=== PATIENT | female | born 1970 | race Caucasian/White ===

== ENCOUNTER → 2017-01-01 | Outpatient (CLI) | payer BC ==
--- NOTE | 2017-01-01 10:49 | MM ---
Reason for exam: clinical finding. Last mammogram was performed 11 months ago. History: Family history of breast cancer in maternal aunt and breast cancer in paternal aunt. Took hormonal contraceptives for 2 years. Indicated problem(s): palpable abnormality and lump or thickening in the right breast. Physical Findings: Nurse Summary: A 2cm nodule in the right breast at 10 o'clock (nurse rm). MG 3D Diag Mammo W/Cad JANET Bilateral CC and MLO view(s) were taken. Prior study comparison: January 31, 2016, bilateral MG diagnostic mammo w CAD JANET. January 22, 2015, bilateral MG diagnostic mammo w CAD JANET. The breast tissue is extremely dense which could obscure a lesion on mammography. There is no discrete abnormality. No significant new findings when compared with previous films. These results were verbally communicated with the patient and result sheet given to the patient on 01/01/17. ASSESSMENT: Negative, BI-RAD 1 RECOMMENDATION: Routine screening mammogram of both breasts in 1 year.
--- NOTE | 2017-01-04 07:19 | USB ---
Reason for exam: clinical finding. History: Family history of breast cancer in maternal aunt and breast cancer in paternal aunt. Took hormonal contraceptives for 2 years. Indicated problem(s): lump or thickening in the right breast. US Breast RT Right breast ultrasound includes all four quadrants, the retroareolar region and axilla. Finding demonstrate a 0.7 x 0.7 x 0.5cm oval, hypoechoic lesion at 9 o'clock for which a biopsy is recommended, a 0.6 x 1.0 x 0.3cm oval node at 9 o'clock and dense tissue at 10-11 o'clock. These results were verbally communicated with the patient and result sheet given to the patient on 01/01/17. ASSESSMENT: Suspicious, BI-RAD 4 RECOMMENDATION: Ultrasound core biopsy of the right breast. Called Dr. Martell with mammographic findings. Biopsy scheduled for 01/08/17 at 9 o'clock. PRELIMINARY REPORT CALLED AND FAXED TO DR. MARTELL ON 01/04/17 AT 300/TMP.
== END | disposition home or self-care (01) ==
LOC: RADMAMWWP 07:36
PROVIDERS: ATTEND Family Medicine
DX: N63 Unspecified lump in breast (principal)
CPT/HCPCS: 76641; G0204; G0279

== ENCOUNTER → 2017-01-07 | Outpatient (CLI) | payer OTHER ==
--- NOTE | 2017-01-07 10:23 | US ---
EXAMINATION TYPE: US pelvic complete DATE OF EXAM: 01/07/2017 COMPARISON: NONE CLINICAL HISTORY: N93.9 Abnormal Uterine and Vaginal Bleeding, Unspe. Abnormal bleeding. TECHNIQUE: Transabdominal (TA) Date of LMP: 12/22/2016 EXAM MEASUREMENTS: Uterus: 10.1 x 4.4 x 5.9 cm Endometrial Stripe: 0.75 cm Right Ovary: 1.6 x 1.2 x 1.7 cm Left Ovary: 2.0 x 1.7 x 2.6 cm 1. Uterus: Anteverted 2. Endometrium: wnl 3. Right Ovary: wnl 4. Left Ovary: wnl. 5. Bilateral Adnexa: wnl 6. Posterior cul-de-sac: wnl IMPRESSION: 1. Endometrial stripe measures approximately 7 to 8 mm correlate with phase of menstrual cycle.
== END | disposition home or self-care (01) ==
LOC: RADUSWWP 09:48
PROVIDERS: ATTEND Family Medicine
DX: N93.9 Abnormal uterine and vaginal bleeding, unspecified (principal)
CPT/HCPCS: 76856

== ENCOUNTER → 2017-01-08 | Day surgery (SDC) | payer BC ==
[2017-01-08 10:41] VITALS: RESP 16; BMI 26.6
[2017-01-08 12:31] VITALS: BP 120/80; PULSE 60; TEMP 98.1
--- NOTE | 2017-01-08 12:59 | USB ---
EXAMINATION TYPE: US biopsy breast VAD RT DATE OF EXAM: 01/08/2017 CLINICAL HISTORY: R92.8 ABN MAMMO. TECHNIQUE: Ultrasound guided core biopsy of right breast. COMPARISON: 01/01/2017 FINDINGS: The procedure of ultrasound guided core biopsy was explained to the patient. Benefits, alternatives, and risks were discussed. An informed consent was obtained. Timeout was performed. The patient was placed in supine positioning for imaging and for the procedure. The overlying skin was prepped and draped in usual sterile fashion. Lidocaine buffered with bicarbonate was used as anesthetic into the skin and subcutaneous tissue up to area of concern in the right breast. A salud was made with surgical scalpel. Under ultrasound guidance, a 12-gauge vacuum assisted biopsy gun device was used to obtain 3 core samples. This appeared to collapse after the first sample suggesting underlying cyst. Following biopsy, a biopsy clip was left in lesion. The patient tolerated the procedure well without any immediate complication. The patient was kept in the radiology department for short stay after the procedure and then discharged home in stable condition. Postprocedure mammogram was obtained. IMPRESSION: 1. Successful ultrasound-guided vacuum-assisted core biopsy. Recommendations: 1. Recommendations are pending pathology results. Pathology Results: Benign BREAST, RIGHT, ULTRASOUND GUIDED CORE BIOPSY: BENIGN BREAST WITH PROMINENT ADIPOSE TISSUE AND FOCAL FIBROCYSTIC CHANGE (FIBROSIS, CYST FORMATION, AND APOCRINE METAPLASIA). Recommendation Follow up mammogram of the right breast in 6 months. STEPHANIE
--- NOTE | 2017-01-08 13:35 | MM ---
Reason for exam: additional evaluation requested from abnormal screening. Last mammogram was performed less than 1 month ago. History: Family history of breast cancer in maternal aunt and breast cancer in paternal aunt. Took hormonal contraceptives for 2 years. MG Diagnostic Mammo RT Wo CAD CC and MLO view(s) were taken of the right breast. Prior study comparison: January 01, 2017, bilateral MG 3d diag mammo w/cad JANET. January 31, 2016, bilateral MG diagnostic mammo w CAD JANET. ASSESSMENT: Post procedure mammogram for marker placement RECOMMENDATION: Ultrasound of the right breast in 6 months. PENDING PATHOLOGY RESULTS.
== END ==
LOC: RADUSWWP 10:16
PROVIDERS: ATTEND Surgery
DX: N60.31 Fibrosclerosis of right breast (principal); N60.81 Other benign mammary dysplasias of right breast; N60.01 Solitary cyst of right breast; Z91.041 Radiographic dye allergy status; R92.8 Other abnormal and inconclusive findings on diagnostic imaging of breast; Z91.09 Other allergy status, other than to drugs and biological substances
CPT/HCPCS: 88305; 19083; G0206; A4648; J2001

== ENCOUNTER → 2017-03-15 | Outpatient (CLI) | payer BC, OTHER ==
[2017-03-15 14:49] LABS: Basophils # (A) 0.1 k/uL (0-0.2); Basophils % (A) 1 %; CHCM 33.4; Eosinophils # (A) 0.1 k/uL (0-0.7); Eosinophils % (A) 2 %; HCT 39.7 % (34.0-46.0); HDW 2.48; HGB 12.8 gm/dL (11.4-16.0); Luc % (Auto) 1; Lymphocytes # (A) 1.7 k/uL (1.0-4.8); Lymphocytes % (A) 22 %; MCH 29.2 pg (25.0-35.0); MCHC 32.3 g/dL (31.0-37.0); MCV 90.2 fL (80.0-100.0); Mean Platelet Volume 7.5; Monocytes # (A) 0.4 k/uL (0-1.0); Monocytes % (A) 5 %; Neutrophils # (A) 5.6 k/uL (1.3-7.7); Neutrophils % (A) 70 %; RBC 4.41 m/uL (3.80-5.40); RDW 14.1 % (11.5-15.5); WBC (Perox) 8.13
== END | disposition home or self-care (01) ==
LOC: LABPAT 14:10
PROVIDERS: ATTEND Obstetrics & Gynecology
DX: Z01.812 Encounter for preprocedural laboratory examination (principal); N93.8 Other specified abnormal uterine and vaginal bleeding
CPT/HCPCS: 85025

== ENCOUNTER 2017-03-23 08:45 | Day surgery (SDC) | payer BC, OTHER ==
--- NOTE | 2017-03-22 22:03 | HP ---
HISTORY OF PRESENT ILLNESS: Isabella is a 46 year old, 3, para 2, 0, 1, 1 who presented to the office on referral from Dr. Martell for dysfunctional uterine bleeding. She complains of approximately 2 to 3 years of significant cycle irregularity. She does have what she considers to be a relatively normal cycle on a monthly basis but has significant episodes of spotting throughout the remainder of the cycle as well as some post coital bleeding. She denies significant dysmenorrhea and has no significant symptoms of menopause at this time. She has had her tubes tied and her partner has a vasectomy. She therefore is not interested in hormonal manipulation to manage the problem and has requested more definitive treatment with endometrial ablation. PAST MEDICAL HISTORY: None. SURGICAL HISTORY: Significant for hernia repair in the past with no anesthetic complications. OBSTETRICAL HISTORY: 3, para 2, 0, 1, 1 with two term vaginal deliveries, one of which was a still . She did have one early elective interruption of . Method of contraception is both tubal ligation and vasectomy. Gynecological history: unremarkable with no history of any infections to include STDs. Family history is noncontributory. Social history: The patient is and works outside the home at [employer]. She is a nonsmoker though she did smoke in the past. She reports occasional alcohol, and denies any other social concerns. Current medications: 1. Adderall 10 mg daily. 2. Celexa 20 mg daily. 3. B12 daily. 4. Iron sulfate daily. ALLERGIES: No known drug allergies. Review of systems is confined to history of present illness. PHYSICAL EXAMINATION: Vital signs are stable and the patient is afebrile. In general, this is a well developed, well nourished white female in no acute distress. HEENT: demonstrates PERRLA, EOMI, her oropharynx is clear. Neck is supple without adenopathy. Thyroid is normal to palpation. Her heart has regular rhythm and rate without murmur. Her lungs are clear to auscultation bilaterally in all pierson. Her abdomen is nondistended and has normal active bowel sounds, is soft, nontender, without any palpable masses, hepatosplenomegaly without any hernias. Her extremities without cyanosis, clubbing or edema and are nontender to palpation bilaterally. Bimanual pelvic examination demonstrates normal external genitalia and BUS with normal vaginal mucosa and cervix. The uterus is approximately five to six weeks in size, mid plane, mobile, nontender and normal shaped uterus. It sounded to approximately 8 to 9 cm in depth on endometrial biopsy which was benign. The adnexa are normal and nontender and without mass bilaterally. ASSESSMENT AND PLAN: Dysfunctional uterine bleeding : We discussed different options for treatment and the patient is interested in proceeding with diagnostic hysterectomy with NovaSure endometrial ablation. Endometrial biopsy was done and benign. The risks and complications of procedure were thoroughly discussed including the risk of bleeding, bleeding requiring transfusion, infection, and injury to local structures to specifically include the uterine perforation, Asherman syndrome and subsequent hematometra. She understood all of these concerns and agrees to proceed. We are scheduled for diagnostic hysteroscopy with NovaSure endometrial ablation on the morning of March 23, 2017. STEPHANIE
[~2017-03-23 08:45] MED LIST: DEXAMETHASONE SOD PHOSPHATE 10 MG/ML 1 ML VIAL IV ONE; HYDROmorphone 1 MG/ML 1 ML SYRINGE IVP PRN; LACTATED RINGERS 1,000 ML IV SCH; LIDOCAINE 1% 20 ML VIAL (10MG/ML) FOR IV START INTRADERMA PRN; ONDANSETRON 4 MG/2 ML VIAL IVP ONE; Pre Op ABX Message 1 EACH MISC MISCELLANE ONE; SCOPOLAMINE 1.5MG/72HR PATCH TRANSDERM ONE
[2017-03-23 09:27] VITALS: TEMP 97.8
[2017-03-23] MEDS ORDERED: KETOROLAC 30 MG/ML 1 ML VIAL ONE (10:57)
[2017-03-23] MEDS ORDERED: PROPOFOL 10 MG/ML 20 ML VIAL IV ONE (10:57)
[2017-03-23] MEDS ORDERED: fentaNYL (PF) 50 MCG/ML 2 ML AMP ONE (10:57)
[2017-03-23] MEDS ORDERED: LIDOCAINE 1% INJ 10MG/ML (20 ML MDV) ONE (10:57)
[2017-03-23] MEDS ORDERED: MIDAZOLAM 2 MG/2 ML VIAL ONE (10:57)
[2017-03-23] MEDS ORDERED: KETOROLAC 30 MG/ML 1 ML VIAL IVP PRN (11:00)
[2017-03-23] MEDS ORDERED: ONDANSETRON 4 MG/2 ML VIAL IVP PRN (11:00)
[2017-03-23] MEDS ORDERED: IBUPROFEN 600 MG TAB PO PRN (11:00)
[2017-03-23] MEDS ORDERED: SIMETHICONE 80 MG CHEWABLE PO PRN (11:00)
[2017-03-23] MEDS ORDERED: diphenhydrAMINE 50 MG/ML 1 ML VIAL IVP PRN (11:00)
[2017-03-23] MEDS ORDERED: LACTATED RINGERS 1,000 ML IV SCH (11:00)
[2017-03-23] MEDS ORDERED: Acetaminophen-Codeine 300-30mg TAB PO PRN ×2 (11:00)
[2017-03-23] MEDS ORDERED: METOCLOPRAMIDE 5 MG/ML 2 ML VIAL IVP PRN (11:00)
--- NOTE | 2017-03-23 11:32 | P.OP ---
Date of Procedure: 03/23/17 Preoperative Diagnosis: #1. Dysfunctional uterine bleeding Postoperative Diagnosis: Same Procedure(s) Performed: #1. Diagnostic hysteroscopy #2. NovaSure endometrial ablation Implants: Anesthesia: other (Gen. by LMA) Surgeon: Rick Burton Estimated Blood Loss (ml): 5 IV fluids (ml): 400 Urine output (ml): 150 Pathology: none sent Condition: stable Disposition: PACU Indications for Procedure: Operative Findings: Preoperative pelvic examination demonstrated a 5 week roughly midplane mobile normal shaped uterus with normal adnexa bilaterally. Intraoperatively, the uterus sounded to 9 cm while the cervix is approximately 3 and half centimeters. The hysteroscope demonstrated some shaggy tissue at the fundus with the bilateral tubal ostia were seen and there was no evidence of any fibroids or other filling defects. The settings for the NovaSure tool where a length of 5.5 cm, a width of 4.4 cm, a total power of 133 W, and a total run time of 123 seconds after which time the base unit read "procedure complete." The postprocedural hysteroscopic findings appeared to be excellent. She is a possible candidate for vaginal hysterectomy should it become necessary in the near future. Description of Procedure: The patient was prepped and draped in usual fashion after general anesthesia was administered by the anesthesiologist. A weighted speculum was placed and the bladder drained of approximately 150 mL of clear bianca urine. The anterior lip the cervix was grasped with a single-tooth tenaculum and uterus sounded to 9 cm with a cervical length of approximately 3.5 cm. Serial dilation was carried out to admit the diagnostic hysteroscope with the findings as noted above. Once adequate hysteroscopy had been carried out, the scope was set aside and further dilation carried out to admit the NovaSure tool. The tool was placed to the fundus of the uterine cavity and opened and seated well. The settings are as noted above. The cavity check was attempted and passed without difficulty. The tool was enabled, and the run was started. After total run time of 123 seconds, the unit disengaged and the base unit read "procedure complete." The 2 was closed and removed and discarded. The diagnostic hysteroscope was replaced and the resulting findings appeared to be excellent. All instrumentation was removed. One tenaculum site was noted to be bleeding was made hemostatic with pressure. Estimated blood loss for the case was 5 mL or less. There were no complications. All sponge, instrument, and needle counts were correct. The patient tolerated the procedure well and proceeded to the recovery room in stable condition.
[2017-03-23 12:23] VITALS: PULSE 72; RESP 18
[2017-03-23 12:42] VITALS: BP 125/85
== END 2017-03-23 12:47 | disposition home or self-care (01) ==
LOC: OR 08:45
PROVIDERS: ATTEND Obstetrics & Gynecology
DX: N93.8 Other specified abnormal uterine and vaginal bleeding (principal); F98.8 Other specified behavioral and emotional disorders with onset usually occurring in childhood and adolescence; Z98.51 Tubal ligation status; Z79.899 Other long term (current) drug therapy; Z91.041 Radiographic dye allergy status; Z87.891 Personal history of nicotine dependence
CPT/HCPCS: 81025; 58563; J2250; J1100; J2405; J2001; J3010; J1885; J2704

== ENCOUNTER → 2017-10-05 | Outpatient (CLI) | payer BC ==
--- NOTE | 2017-10-05 11:15 | MM ---
Reason for exam: follow-up at short interval from prior study. Last mammogram was performed 9 months ago. History: Family history of breast cancer in maternal aunt and breast cancer in paternal aunt. Benign US biopsy breast VAD RT of the right breast, January 08, 2017. Took hormonal contraceptives for 2 years. Physical Findings: Nurse Summary: 2cm nodule in the right breast at 10 o'clock (nurse mj). MG Diagnostic Mammo RT w CAD CC, MLO, and XCCL view(s) were taken of the right breast. Prior study comparison: January 08, 2017, right breast MG diagnostic mammo RT wo CAD. January 01, 2017, bilateral MG 3d diag mammo w/cad JANET. The breast tissue is extremely dense which could obscure a lesion on mammography. Focal asymmetry right upper outer quadrant. Post ultrasound core biopsy, clip not seen. These results were verbally communicated with the patient and result sheet given to the patient on 10/05/17. ASSESSMENT: Benign, BI-RAD 2 RECOMMENDATION: Routine screening mammogram of both breasts in 6 months. Back on schedule. Manage on a clinical basis with regard to palpable.
--- NOTE | 2017-10-05 11:16 | USB ---
Reason for exam: follow-up at short interval from prior study. History: Family history of breast cancer in maternal aunt and breast cancer in paternal aunt. Benign US biopsy breast VAD RT of the right breast, January 08, 2017. Took hormonal contraceptives for 2 years. US Breast RT Right breast ultrasound includes all four quadrants, the retroareolar region and axilla. Finding demonstrates a 6 x 7mm oval, lymph node at 9 o'clock and dense tissue at palpable at 10 o'clock. These results were verbally communicated with the patient and result sheet given to the patient on 10/05/17. ASSESSMENT: Benign, BI-RAD 2 RECOMMENDATION: Routine screening mammogram of both breasts in 3 months. Back on schedule. Manage on a clinical basis with regard to palpable.
== END | disposition home or self-care (01) ==
LOC: RADMAMWWP 09:34
PROVIDERS: ATTEND Family Medicine
DX: N60.11 Diffuse cystic mastopathy of right breast (principal)
CPT/HCPCS: 77065

== ENCOUNTER 2018-07-15 08:02 | Day surgery (SDC) | payer BC ==
[2018-07-13 12:17] VITALS: BMI 26.2
--- NOTE | 2018-07-15 05:19 | P.GSHP ---
History of Present Illness H&P Date: 07/15/18 CHIEF COMPLAINT: Inguinal hernia, left. HISTORY OF PRESENT ILLNESS: The patient is a 48-year-old female who presents with a history of swelling and pain along the left groin. She's noted increased swelling including pain of the area. Now she presents for repair of her inguinal hernia. PAST MEDICAL HISTORY: Please see list. PAST SURGICAL HISTORY: Please see list. MEDICATIONS: Please see list. ALLERGIES: Please see list. SOCIAL HISTORY: No illicit drug use FAMILY HISTORY: No reports of Crohn disease or ulcerative colitis. REVIEW OF ORGAN SYSTEMS: CONSTITUTIONAL: No reports of fevers or chills. No reports of weight loss despite prior attempts. GI: Denies any blood in stools or constipation. PHYSICAL EXAM: VITAL SIGNS: Stable GENERAL: Well-developed pleasant female in no acute distress. HEENT: No scleral icterus. Extraocular movements grossly intact. Moist buccal mucosa. NECK: Supple without lymphadenopathy. CHEST: Unlabored respirations. Equal bilateral excursions. CARDIOVASCULAR: Regular rate and rhythm. Distal 2+ pulses. ABDOMEN: Soft, nondistended. No peritoneal signs. Palpable defect of the left groin. MUSCULOSKELETAL: No clubbing, cyanosis, or edema. ASSESSMENT: 1. Inguinal hernia, left initial and symptomatic. PLAN: 1. Recommend proceeding with robotic inguinal repair with mesh with possible bilateral approach. 2. Benefits and risks of surgical intervention was discussed including possibility of open technique. 3. DVT prophylaxis. 4. Antibiotic prophylaxis. Past Medical History Past Medical History: Osteoarthritis (OA), Sleep Apnea/CPAP/BIPAP Additional Past Medical History / Comment(s): CPAP use. History of Any Multi-Drug Resistant Organisms: None Reported Past Surgical History: Hernia Repair, Orthopedic Surgery, Tubal Ligation, Uterine Ablation Additional Past Surgical History / Comment(s): Umbilical hernia as an , neck surgery 2011, left shoulder minor rotator cuff surgery. LEFT GROIN CYST ASPIRATION. Past Anesthesia/Blood Transfusion Reactions: Postoperative Nausea & Vomiting ( PONV) Past Psychological History: No Psychological Hx Reported Smoking Status: Current some day smoker Past Alcohol Use History: Occasional Additional Past Alcohol Use History / Comment(s): Quit smoking 3 yrs ago, smoked on and off for 15 yrs. Still has an occasional cigarette when she drinks alcohol. Past Drug Use History: None Reported - Past Family History Mother Family Medical History: Cancer Additional Family Medical History / Comment(s): Lung cancer. Medications and Allergies Home Medications Medication Instructions Recorded Confirmed Type Dextroamphetamine/Amphetamine 10 mg PO QAM 06/30/16 07/13/18 History [Adderall] Arginex 1 tab PO BID 07/13/18 07/13/18 History D-Mannose 2 tab PO QAM 07/13/18 07/13/18 History L.acidoph,Paracasei, B.lactis 1 each PO DAILY 07/13/18 07/13/18 History [Probiotic] Mind Grajeda 2 tsp PO DAILY 07/13/18 07/13/18 History SUMAtriptan SUCCINATE [Imitrex] 50 mg PO TID PRN 07/13/18 07/13/18 History Super C 1 tab PO HS 07/13/18 07/13/18 History Wheat Germ Oil 1 tab PO BID 07/13/18 07/13/18 History Allergies Allergy/AdvReac Type Severity Reaction Status Date / Time Iodinated Contrast- Oral and AdvReac Rash/Hives Verified 07/13/18 11:56 IV Dye [Iodinated Contrast Media - IV Dye]
[~2018-07-15 08:02] MED LIST changes: +ACETAMINOPHEN IV (For NPO) 1,000 MG in EMPTY BAG 1 BAG IVPB ONE; +HEPARIN SODIUM,PORCINE 5,000 UNIT/ML 1 ML VIAL SQ ONE; +HYDROmorphone 0.5 MG/0.5 ML SYRINGE IVP PRN; -HYDROmorphone 1 MG/ML 1 ML SYRINGE IVP PRN; -LACTATED RINGERS 1,000 ML IV SCH; -LIDOCAINE 1% 20 ML VIAL (10MG/ML) FOR IV START INTRADERMA PRN; +MIDAZOLAM (PF) 2 MG/2 ML VIAL IV PRN; -Pre Op ABX Message 1 EACH MISC MISCELLANE ONE; +SCOPOLAMINE 1.5MG/72HR PATCH TRANSDERM STA; +ceFAZolin IN SWFI 2 GM/20 ML SYRINGE IVP ONE
[2018-07-15] MEDS: LACTATED RINGERS 1,000 ML IV SCH ×2 (08:46→08:47)
[2018-07-15] MEDS ORDERED: LIDOCAINE 1% 20 ML VIAL (10MG/ML) FOR IV START INTRADERMA ONE ×2 (08:47→08:48)
[2018-07-15] MEDS ORDERED: fentaNYL (PF) 50 MCG/ML 2 ML AMP IVP ONE (08:56)
--- NOTE | 2018-07-15 09:15 | P.ONQ ---
Anesthesiology Proc Note - PNB - Peripheral Nerve Block Performed Left Transversus Abdominis Single Procedure Start Time: 08:55 Procedure Stop Time: 09:05 Indication: Requested by physician Specifically requested for management of pain by DrSisi: Gayla Mccray Sedation Type: Sedate with meaningful contact maintained Preparation: Sterile Prep Position: Supine Needle Types: Other (see comment) (pujunk) Needle Size: 100mm (4") Needle Gauge: 20 Technique: Ultrasound Injectate: 0.5% Ropivacaine (see comment for volume) (20 ml) Blood Aspirated: No Pain Paresthesia on Injection Noted: No Resistance on Injection: Normal Events: Uneventful and Well Tolerated
[2018-07-15] MEDS ORDERED: MIDAZOLAM 2 MG/2 ML VIAL IVP ONE (09:22)
[2018-07-15] MEDS ORDERED: MIDAZOLAM 2 MG/2 ML VIAL ONE (09:52)
[2018-07-15] MEDS ORDERED: HYDROmorphone (PF) 1 MG/ML ONE (09:52)
[2018-07-15] MEDS ORDERED: ePHEDrine SULFATE/0.9% NACL/PF 50 MG/5 ML SYRINGE IV ONE (09:52)
[2018-07-15] MEDS ORDERED: ROCURONIUM BROMIDE 10 MG/ML 10 ML VIAL IV ONE (09:52)
[2018-07-15] MEDS ORDERED: ROPIVACAINE 5 MG/ML 30 ML VIAL ONE (09:52)
[2018-07-15] MEDS ORDERED: PROPOFOL 10 MG/ML 20 ML VIAL IV ONE (09:52)
[2018-07-15] MEDS ORDERED: fentaNYL (PF) 50 MCG/ML 2 ML AMP ONE (09:52)
[2018-07-15] MEDS ORDERED: LIDOCAINE 1% INJ 10MG/ML (20 ML MDV) ONE (09:52)
[2018-07-15] MEDS ORDERED: SUCCINYLCHOLINE CHLORIDE 100 MG/5 ML SYR IV ONE (09:52)
[2018-07-15] MEDS ORDERED: BUPIVACAIN-EPI 0.25%-1:200,000 30 ML VIAL SQ ONE (10:24)
--- NOTE | 2018-07-15 11:44 | P.OP ---
Date of Procedure: 07/15/18 Description of Procedure: SURGEON: GAYLA MCCRAY MD PREOPERATIVE DIAGNOSES: 1. History of left inguinal swelling and pain POSTOPERATIVE DIAGNOSES: 1. History of left inguinal swelling and pain 2. Incarcerated left femoral hernia, initial 3. Left inguinal tumor, 8 x 4 cm, subfascial/inguinal canal OPERATION: 1. Robotic assisted da Terrence Xi laparoscopic excision of left inguinal tumor, 8 x 4 cm, subfascial/inguinal canal 2. Robotic assisted da Terrence Xi laparoscopic left inguinal hernia repair with ventralight ST mesh, 11.4 cm. ANESTHESIA: General with local anesthetic ESTIMATED BLOOD LOSS: 25 mL. SPECIMENS REMOVED: None. COMPLICATIONS: None. INDICATIONS: The patient is a 48-year-old female who presents with history of left-sided pain. Now she presents for definitive surgical intervention. Laparoscopic versus open and robotic approaches were discussed. Benefits and risks including bleeding, infection, and chronic groin pain were reviewed. Placement of mesh was also described. Informed consent was obtained. DESCRIPTION: In the preoperative area, the patient was marked with indelible marker along the left groin. The patient was brought to the operating room and initially laid in supine position. After general induction, the abdomen had been prepped and draped in standard sterile fashion. Ioban draping was also placed. Prior to incision, a timeout protocol was confirmed with surgical team regarding patient's name including procedures to be performed and location along the left groin. Initial positioning for the robotic assisted ports were selected whereby 20 cm superior to the target anatomy, 0 degree 5 mm laparoscopic trocar entry was performed at the left upper quadrant. The abdomen was insufflated to 15 mmHg which she had tolerated well. Diagnostic laparoscopy demonstrated a defect along the left groin. The uterus and ovaries were unremarkable from the appendix and sigmoid colon and cecum. No defects were identified along the right groin. Next, along the epigastrium, 8 mm robot trocar was placed. An 8-mm robotic trocar was placed under direct visualization at the right upper quadrant. The 5 mm port was exchanged for a 8 mm trocar. All trocars were positioned 10-cm apart from each other. The [employer] XI robot was primed, draped, prepared for docking along the left side of the patient. I then went to the [employer] Xi console. The assistant baseball coach was at bedside for exchange of the robot arms and equipment. At the left groin, the peritoneum was scored over the initial small 1 cm defect. The hernia sac was evaginated whereby the peritoneum was scored using Endo scissors with cautery. The hernia sac had reached into the left femoral canal consistent with a femoral hernia. Additionally, a 8 x 4 cm large subfascial inguinal canal tumor was excised and evaginated into the peritoneal cavity using vessel sealer Once completely reduced into the abdominal cavity, the peritoneal sac of the hernia was stripped. The sac was resected and then passed off for further pathological analysis. The size of the hernia defect was 3 cm with intraoperative films obtained. Using a 2-0 VLOC, the peritoneal defect of the left inguinal hernia site was closed using a pursestring suture. The defect was found to be completely closed with complete reduction of the left inguinal hernia was confirmed. As an onlay, an 11.[address] mesh by [employer] was cut in half and entered into the abdominal cavity via the 8 mm trocar. The mesh was tacked to the pelvis using 2-0 VLOC x 9-inch length sutures. The robot was undocked from the patient's bedside. I then rescrubbed into the case. The specimen was removed from the abdominal cavity from the left upper quadrant port site. Insufflation was released from the abdominal cavity and all instruments were removed from the abdominal cavity. The rest of incisions were reapproximated using 4-0 Monocryl in a running subcuticular fashion. Local anesthetic was placed along the incision including for a groin block. Incisions were cleansed using dilute hydrogen peroxide. Dermabond was applied to the skin. At the end of the procedure, the needle, sponge and instrument counts had been verified correct by the refractory technician. The patient had tolerated the procedure well and was taken to the postanesthesia care unit in stable condition. Intraoperative findings were described to the patient's family. FINDINGS: 1. Large subfascial left inguinal tumor resected 8 x 4 cm Plan - Discharge Summary New Discharge Prescriptions: New HYDROcodone/APAP 5-325MG [[place] 5-325] 1 tab PO Q4HR PRN 3 Days #18 tab PRN Reason: Pain Ibuprofen [Motrin] 600 mg PO Q8HR PRN #30 tab PRN Reason: Pain No Action Dextroamphetamine/Amphetamine [Adderall] 10 mg PO QAM SUMAtriptan SUCCINATE [Imitrex] 50 mg PO TID PRN PRN Reason: Migraine Headache Super C 1 tab PO HS L.acidoph,Paracasei, B.lactis [Probiotic] 1 each PO DAILY Mind Grajeda 2 tsp PO DAILY Arginex 1 tab PO BID Wheat Germ Oil 1 tab PO BID D-Mannose 2 tab PO QAM Discharge Medication List Dextroamphetamine/Amphetamine [Adderall] 10 mg PO QAM 06/30/16 [History] Arginex 1 tab PO BID 07/13/18 [History] D-Mannose 2 tab PO QAM 07/13/18 [History] L.acidoph,Paracasei, B.lactis [Probiotic] 1 each PO DAILY 07/13/18 [History] Mind Grajeda 2 tsp PO DAILY 07/13/18 [History] SUMAtriptan SUCCINATE [Imitrex] 50 mg PO TID PRN 07/13/18 [History] Super C 1 tab PO HS 07/13/18 [History] Wheat Germ Oil 1 tab PO BID 07/13/18 [History] HYDROcodone/APAP 5-325MG [[place] 5-325] 1 tab PO Q4HR PRN 3 Days #18 tab [Rx] Ibuprofen [Motrin] 600 mg PO Q8HR PRN #30 tab 07/15/18 [Rx] Follow up Appointment(s)/Referral(s): Gayla Mccray MD [STAFF PHYSICIAN] - 07/27/18 Patient Instructions/Handouts: Laparoscopic Herniorrhaphy (IP), Inguinal Hernia (DC), Inguinal Hernia Repair (DC) Activity/Diet/Wound Care/Special Instructions: No lifting over 4 pounds in 2 weeks. May shower. No bathtub soaks. Discharge Disposition: HOME SELF-CARE
[2018-07-15 11:58] VITALS: TEMP 96.9
[2018-07-15] MEDS ORDERED: KETOROLAC 30 MG/ML 1 ML VIAL IVP ONE (12:49)
[2018-07-15 13:09] VITALS: RESP 18
[2018-07-15 13:22] VITALS: BP 111/73; PULSE 72
== END 2018-07-15 14:03 | disposition home or self-care (01) ==
LOC: OR 08:02
PROVIDERS: ATTEND Surgery Plastic and Reconstructive Surgery
DX: K41.30 Unilateral femoral hernia, with obstruction, without gangrene, not specified as recurrent (principal); D21.5 Benign neoplasm of connective and other soft tissue of pelvis; M19.90 Unspecified osteoarthritis, unspecified site; G47.30 Sleep apnea, unspecified; Z99.89 Dependence on other enabling machines and devices; F17.210 Nicotine dependence, cigarettes, uncomplicated; Z80.1 Family history of malignant neoplasm of trachea, bronchus and lung; Z79.899 Other long term (current) drug therapy; Z91.041 Radiographic dye allergy status; G43.909 Migraine, unspecified, not intractable, without status migrainosus
CPT/HCPCS: 49650; S2900; 64486; 81025; 88302

== ENCOUNTER → 2019-01-11 | Outpatient (CLI) | payer BC ==
--- NOTE | 2019-01-11 14:19 | MM ---
Reason for exam: screening (asymptomatic). Last mammogram was performed 1 year and 3 months ago. History: Family history of breast cancer in maternal aunt and breast cancer in paternal aunt. Benign US biopsy breast VAD RT of the right breast, January 08, 2017. Took hormonal contraceptives for 2 years. Physical Findings: A clinical breast exam by your physician is recommended on an annual basis and results should be correlated with mammographic findings. MG Screening Mammo w CAD Bilateral CC and MLO view(s) were taken. Prior study comparison: October 05, 2017, right breast MG diagnostic mammo RT w CAD. January 08, 2017, right breast MG diagnostic mammo RT wo CAD. The breast tissue is extremely dense which could obscure a lesion on mammography. Previous mammotome biopsy in the right breast. No significant changes when compared with prior studies. ASSESSMENT: Benign, BI-RAD 2 RECOMMENDATION: Routine screening mammogram of both breasts in 1 year.
== END | disposition home or self-care (01) ==
LOC: RADMAMWWP 09:59
PROVIDERS: ATTEND Family Medicine
DX: Z12.31 Encounter for screening mammogram for malignant neoplasm of breast (principal)
CPT/HCPCS: 77067

== ENCOUNTER → 2019-12-27 | Outpatient (CLI) | payer BC | END | disposition home or self-care (01) | LOC: LABWHC1 10:45 | PROVIDERS: ATTEND Surgery Plastic and Reconstructive Surgery | DX: Z11.59 Encounter for screening for other viral diseases (principal) ==

== ENCOUNTER 2019-12-29 07:45 | Day surgery (SDC) | payer BC ==
[2019-12-28 08:56] VITALS: BMI 27.5
--- NOTE | 2019-12-29 06:27 | P.GSHP ---
History of Present Illness H&P Date: 12/29/19 CHIEF COMPLAINT: History of left groin swelling. HISTORY OF PRESENT ILLNESS: Isabella Monzon is a 49-year-old female who comes in with history of two new complaints. One of them includes a swelling along the epigastrium from a previous ventral hernia as a child and now a new swelling along the left groin. She has a personal history of a previous left inguinal hernia repair with removal of a tumor in June of 2018, now a year and a half ago. As a result of the new swelling, she presents here for assessment. PAST MEDICAL HISTORY: Please see list. PAST SURGICAL HISTORY: Please see list. MEDICATIONS: Please see list. ALLERGIES: Please see list. SOCIAL HISTORY: No illicit drug use FAMILY HISTORY: No reports of Crohn disease or ulcerative colitis. REVIEW OF ORGAN SYSTEMS: Additionally reports: CONSTITUTIONAL: No fevers or chills. No recent weight loss. EYES: Denies any trouble with vision. No glasses. HEENT: No difficulties with hearing. No nosebleeds. No difficulty swallowing. RESPIRATORY: Denies pneumonia. Denies any troubles with breathing or dyspnea on exertion. CARDIOVASCULAR: Denies any chest pain, palpitations, or recent heart attacks. GASTROINTESTINAL: Denies fatty food intolerance. Denies change in bowel habits and gas bloat. GENITOURINARY: Denies any blood in urine or increased urinary frequency. NEUROLOGICAL: Denies any numbness or tingling along the distal extremities. No seizure disorders. Has headaches. MUSCULOSKELETAL: Denies any back pain, stiffness or joint arthritis. SKIN: No current skin cancer. No rash. PSYCHIATRIC: Denies current depression or suicidal thoughts. ENDOCRINE: Denies current thyroid disorders. Denies any blood sugar glucose intolerance. HEME/LYMPHATIC: Denies any lumps and bumps around the neck. No recent deep venous thrombosis. ALLERGY/IMMUNOLOGY: No immunoglobulin therapy. No immune deficiencies. BREAST: Denies current breast lumps, pain or nipple discharge. PHYSICAL EXAM: Patient is a 49-year-old female. Abdomen: Palpable incisional hernia defect of about 2 cm along the epigastrium, just above the umbilicus. Swelling was noted along the left groin. CONSTITUTIONAL: Well developed and in no acute distress. Vitals reviewed. EYES: Conjuctivae without sclera icterus. Pupils are equally round and reactive to light. Extraocular movements grossly intact. HEAD, EARS, NOSE, THROAT: Moist buccal mucosa. Head is atraumatic, normocephalic. Hears conversational speech. No nasal drainage. NECK: Supple. No JV distention. No thyroidomegaly. RESPIRATORY: Non-labored respirations and equal bilateral excursions. No gross wheezes. CARDIOVASCULAR: Regular rate and rhythm. Extremities without moderate edema. Palpable 2+ radial pulses. LYMPH: No neck lymphadenopathy. No axillary lymphadenopathy. MUSCULOSKELETAL: Nail and fingers with good capillary refill. SKIN: Warm and well perfused with good skin turgor. NEUROLOGIC: Cranial nerves I through XII grossly intact. Sensation upper and extremities intact. No focal or lateralizing signs. PSYCH: Appropriate affect. Alert and oriented to person, place and time. Displays appropriate insight. ASSESSMENT: 1. Recurrent incisional ventral hernia of the epigastrium. 2. Recurrent left inguinal swelling. PLAN: 1. We have gone over her prior images that demonstrated a large tumor, which had been removed from the left groin. Separately, this may also be retained fluid. 2. She does have a recurrent defect along the abdomen, where an incisional hernia repair was described. 3. Benefits and risks of the procedure were described. 4. Will need CMP and CBC for pre-op. 5. Will need 12-lead EKG, pre-op Past Medical History Past Medical History: Osteoarthritis (OA), Sleep Apnea/CPAP/BIPAP Additional Past Medical History / Comment(s): CPAP use. History of Any Multi-Drug Resistant Organisms: None Reported Past Surgical History: Hernia Repair, Orthopedic Surgery, Tubal Ligation, Uterine Ablation Additional Past Surgical History / Comment(s): Umbilical hernia as an , neck surgery 2010, left shoulder minor rotator cuff surgery. LEFT GROIN CYST ASPIRATION. Past Anesthesia/Blood Transfusion Reactions: Postoperative Nausea & Vomiting (PONV) Smoking Status: Former smoker - Past Family History Mother Family Medical History: Cancer Additional Family Medical History / Comment(s): Lung cancer. Medications and Allergies Home Medications Medication Instructions Recorded Confirmed Type Dextroamphetamine/Amphetamine 15 mg PO QAM 06/30/16 12/28/19 History [Adderall] Arginex 1 tab PO BID 07/13/18 12/28/19 History D-Mannose 2 tab PO QAM 07/13/18 12/28/19 History L.acidoph,Paracasei, B.lactis 1 each PO DAILY 07/13/18 12/28/19 History [Probiotic] Mind Grajeda 2 tsp PO DAILY 07/13/18 12/28/19 History SUMAtriptan SUCCINATE [Imitrex] 50 mg PO TID PRN 07/13/18 12/28/19 History Super C 1 tab PO HS 07/13/18 12/28/19 History Wheat Germ Oil 1 tab PO BID 07/13/18 12/28/19 History Ferrous Sulfate [Feosol] 325 mg PO DAILY 12/28/19 12/28/19 History [facility] 1 tab PO DAILY 12/28/19 12/28/19 History Allergies Allergy/AdvReac Type Severity Reaction Status Date / Time Iodinated Contrast Media AdvReac Rash/Hives Verified 12/28/19 08:47 [Iodinated Contrast Media - IV Dye]
[~2019-12-29 07:45] MED LIST changes: -ACETAMINOPHEN IV (For NPO) 1,000 MG in EMPTY BAG 1 BAG IVPB ONE; +ACETAMINOPHEN TAB 500 MG TAB PO STA; +GABAPENTIN 300 MG CAP PO STA; -HYDROmorphone 0.5 MG/0.5 ML SYRINGE IVP PRN; +LACTATED RINGERS 1,000 ML IV SCH; -MIDAZOLAM (PF) 2 MG/2 ML VIAL IV PRN; +MIDAZOLAM 2 MG/2 ML VIAL IV PRN; -SCOPOLAMINE 1.5MG/72HR PATCH TRANSDERM STA; +TAMSULOSIN 0.4 MG CAP.ER.24H PO STA; -ceFAZolin IN SWFI 2 GM/20 ML SYRINGE IVP ONE
[2019-12-29 08:34] LABS: HCT 41.6 % (34.0-46.0); HGB 14.2 gm/dL (11.4-16.0); MCH 30.4 pg (25.0-35.0); MCHC 34.1 g/dL (31.0-37.0); MCV 88.9 fL (80.0-100.0); Platelet Count 286 k/uL (150-450); RBC 4.68 m/uL (3.80-5.40); RDW 12.7 % (11.5-15.5); WBC 6.5 k/uL (3.8-10.6)
[2019-12-29 08:43] LABS: ALT 16 U/L (4-34); AST 29 U/L (14-36); African American GFR (CKD) >90 (>60 ml/min/1.73 sqM); Albumin 4.6 g/dL (3.5-5.0); Alkaline Phosphatase 26 U/L (38-126); Anion Gap 7 mmol/L; Blood Urea Nitrogen 20 mg/dL (7-17); Calcium 9.5 mg/dL (8.4-10.2); Carbon Dioxide 26 mmol/L (22-30); Chloride 105 mmol/L (98-107); Glucose 84 mg/dL (74-99); Non-African American GFR(CKD) >90 (>60 ml/min/1.73 sqM); Sodium 138 mmol/L (137-145); Total Bilirubin 0.7 mg/dL (0.2-1.3); Total Protein 7.8 g/dL (6.3-8.2)
[2019-12-29 08:44] LABS: Potassium 5.1 mmol/L (3.5-5.1)
[2019-12-29] MEDS ORDERED: NEOSTIGMINE 1 MG/ML 10 ML VIAL ONE (09:24)
[2019-12-29] MEDS ORDERED: LIDOCAINE 1% INJ 10MG/ML (20 ML MDV) ONE (09:24)
[2019-12-29] MEDS ORDERED: ROCURONIUM BROMIDE 10 MG/ML 5 ML VIAL IV ONE (09:24)
[2019-12-29] MEDS ORDERED: ROPIVACAINE 5 MG/ML 30 ML VIAL ONE (09:24)
[2019-12-29] MEDS ORDERED: ESMOLOL 100 MG/10 ML VIAL ONE (09:24)
[2019-12-29] MEDS ORDERED: HYDROmorphone (PF) 1 MG/ML ONE (09:24)
[2019-12-29] MEDS ORDERED: fentaNYL (PF) 50 MCG/ML 2 ML AMP ONE (09:24)
[2019-12-29] MEDS ORDERED: GLYCOPYRROLATE 0.2 MG/ML 2 ML VIAL ONE (09:24)
[2019-12-29] MEDS ORDERED: SUCCINYLCHOLINE CHLORIDE 100 MG/5 ML SYR IV ONE (09:24)
[2019-12-29] MEDS ORDERED: PROPOFOL 10 MG/ML 20 ML VIAL IV ONE (09:24)
[2019-12-29] MEDS ORDERED: LIDOCAINE 1%-EPI 1:100,000 20 ML VIAL SQ ONE ×2 (09:49→10:06)
[2019-12-29] MEDS ORDERED: LACTATED RINGERS 1,000 ML IV ONE ×2 (11:08→13:01)
[2019-12-29 12:23] VITALS: TEMP 97.7
--- NOTE | 2019-12-29 12:26 | P.ANPRN ---
Procedure Note - Anesthesia - Nerve Block Performed Bilateral Transversus Abdominis Single Date of Procedure: 12/29/19 Procedure Start Time: 08:50 Procedure Stop Time: 09:04 Location of Patient: PreOp Indication: Acute Post-Operative Pain, Requested by Surgeon (Dr Mccray) Sedation Type: Sedate with meaningful contact maintained Preparation: Sterile Prep Position: Supine Catheter: None Needle Types: Pajunk Needle Gauge: 20 Ultrasound used to visualize needle placement: Yes Ultrasound used to observe medication spread: Yes Injectate: 0.5% Ropivacaine (see comment for volume) (17cc each side) Blood Aspirated: No Pain Paresthesia on Injection Noted: No Resistance on Injection: Normal Image Stored and Saved: Yes Events: Uneventful and Well Tolerated
[2019-12-29] MEDS ORDERED: KETOROLAC 30 MG/ML 1 ML VIAL IVP PRN (12:38)
[2019-12-29] MEDS ORDERED: GABAPENTIN 300 MG CAP PO PRN (12:39)
[2019-12-29] MEDS: HYDROmorphone 0.5 MG/0.5 ML SYRINGE IVP PRN ×2 (12:39→12:45)
--- NOTE | 2019-12-29 12:42 | P.OP ---
Date of Procedure: 12/29/19 Description of Procedure: SURGEON: GAYLA MCCRAY MD PREOPERATIVE DIAGNOSES: 1. Left inguinal swelling and pain 2. history of previous left inguinal hernia repair 3. Incisional hernia, epigastrium 4. Previous history of epigastric ventral hernia repair POSTOPERATIVE DIAGNOSES: 1. Recurrent left inguinal hernia, 2. Recurrent epigastric incisional hernia, 5 cm 3. Left inguinal tumor, 3 x 4 cm, subfascial/inguinal canal OPERATION: 1. Robotic-assisted da Terrence Xi laparoscopic repair of recurrent incarcerated epigastric incisional hernia with mesh, ventralight ST mesh 11.4 cm 2. Robotic assisted da Terrence Xi laparoscopic excision of left inguinal tumor, 3 x 4 cm, subfascial/inguinal canal 3. Robotic assisted da Terrence Xi laparoscopic left inguinal hernia repair with ventralight ST mesh, 11.4 cm. ANESTHESIA: General, local regional with local anesthetic ESTIMATED BLOOD LOSS: 10 mL. SPECIMENS REMOVED: Left inguinal lipoma, hernia sac COMPLICATIONS: None. FINDINGS: 1. Recurrent left inguinal hernia with subfascial left inguinal tumor resected 3 x 4 cm 2. Recurrent incarcerated incisional hernia defect of the epigastrium to the umbilicus revealing turkmen chess defect 5 x 3 cm INDICATIONS: The patient is a 49-year-old female who presents with history of left-sided pain including previous history of left inguinal hernia repair and ventral hernia repair. Now she presents for definitive surgical intervention. Laparoscopic versus open and robotic approaches were discussed. Benefits and risks including bleeding, infection, and chronic groin pain were reviewed. Placement of mesh was also described. Informed consent was obtained. DESCRIPTION: In the preoperative area, the patient was marked with indelible marker along the left groin. The patient was brought to the operating room and initially laid in supine position. After general induction, the abdomen had been prepped and draped in standard sterile fashion. Ioban draping was also placed. Prior to incision, a timeout protocol was confirmed with surgical team regarding patient's name including procedures to be performed and location along the left groin. Initial positioning for the robotic assisted ports were selected whereby 20 cm superior to the target anatomy, 0 degree 5 mm laparoscopic trocar entry was performed at the left upper quadrant. The abdomen was insufflated to 15 mmHg which she had tolerated well. Diagnostic laparoscopy demonstrated a defect along the left groin. The uterus and ovaries were inspected with left ovarian cyst 2 cm in size. Evidence of division of the bilateral fallopian tubes confirmed previous tubal ligation. No defects were identified along the right groin. Next, along the epigastrium, 8 mm robot trocar was placed. An 8-mm robotic trocar was placed under direct visualization at the right upper quadrant. The 5 mm port was exchanged for a 8 mm trocar. All trocars were positioned 10-cm apart from each other. A 12-mm Ethicon trocar was placed along the right lateral abdominal wall for exchange of sutures and mesh. The AVST XI robot was primed, draped, prepared for docking along the right side of the patient. I then went to the [employer] console. The mechanic's assistant was at bedside for exchange of the robot arms and equipment. At the left groin, the peritoneum was scored over the initial 2 cm defect. The hernia sac was evaginated whereby the peritoneum was scored using Endo scissors with cautery. The hernia sac had reached into the left femoral canal consistent with a femoral hernia. Additionally, a 3 x 4 cm large subfascial inguinal canal tumor was excised and evaginated into the peritoneal cavity. Once completely reduced into the abdominal cavity, the peritoneal sac of the hernia was stripped. The sac was resected and then passed off for further pathological analysis. The size of the hernia defect was 2 cm with intraoperative films obtained. Using a 2-0 VLOC nonabsorbable, the peritoneal defect of the left inguinal hernia site was closed using a pursestring suture. The defect was found to be completely closed with complete reduction of the left inguinal hernia was confirmed. As an onlay, an 11.[address] mesh by [employer] was cut in half and entered into the abdominal cavity via the 8 mm trocar. The mesh was tacked to the pelvis using nonabsorbable 2-0 VLOC x 9-inch length sutures. The robot was temporarily undocked from the patient's bedside. I then rescrubbed into the case. Robotic ports were repositioned where three 8 mm ports were placed along the right lateral abdominal wall. The 12 mm laparoscopic port was repositioned at the right upper quadrant. The epigastric incision was closed using 4-0 Monocryl. The AVST XI robot was re-docked along the right lateral abdominal wall. I then sat at the robot Da Terrence Xi console. Incarcerated falciform ligament was found along the upper midline defect including umbilicus. The defects were reduced with preperitoneal fat including the falciform ligament at the upper midline defect. Three distinct fascial defects were found creating a turkmen cheese defect measuring 5 x 3 cm. The incarcerated contents were reduced as the peritoneal fat was cleaned from the abdominal wall. Next, hemostasis was checked with cautery. The hernia defects were oversewn as one using #1 nonabsorbable V-lock suture with fascial imbrication x 2. Next, ventralight ST mesh 11.4 cm was placed with the rough side towards the abdominal wall as to cover the epigastric including umbilical defect. 2-0 VLOC 9 inch nonabsorbable sutures were used to fixate the mesh. A final endoscopic imaging was obtained of both repairs. The specimen was removed from the abdominal cavity from the left upper quadrant port site. Insufflation was released from the abdominal cavity and all instruments were removed from the abdominal cavity. The rest of incisions were reapproximated using 4-0 Monocryl in a running subcuticular fashion. Incisions were cleansed using dilute hydrogen peroxide. Exofin was applied to the skin. At the end of the procedure, the needle, sponge and instrument counts had been verified correct by the internetworking technician. The patient had tolerated the procedure well and was taken to the postanesthesia care unit in stable condition. Intraoperative findings were described to the patient's family. Plan - Discharge Summary Discharge Rx Participant: Yes New Discharge Prescriptions: New Ibuprofen [Motrin] 600 mg PO Q8HR PRN #30 tab PRN Reason: Pain HYDROcodone/APAP 5-325MG [[place] 5-325] 1 tab PO Q6HR PRN 3 Days #10 tab PRN Reason: Pain Acetaminophen Tab [Tylenol Tab] 1,000 mg PO Q6HR PRN #30 tablet Continue Dextroamphetamine/Amphetamine [Adderall] 15 mg PO QAM SUMAtriptan SUCCINATE [Imitrex] 50 mg PO TID PRN PRN Reason: Migraine Headache Super C 1 tab PO HS L.acidoph,Paracasei, B.lactis [Probiotic] 1 each PO DAILY Mind Grajeda 2 tsp PO DAILY Arginex 1 tab PO BID Wheat Germ Oil 1 tab PO BID D-Mannose 2 tab PO QAM Ferrous Sulfate [Iron (65 MG Elemental)] 325 mg PO DAILY [facility] 1 tab PO DAILY Discharge Medication List Dextroamphetamine/Amphetamine [Adderall] 15 mg PO QAM 06/30/16 [History] Arginex 1 tab PO BID 07/13/18 [History] D-Mannose 2 tab PO QAM 07/13/18 [History] L.acidoph,Paracasei, B.lactis [Probiotic] 1 each PO DAILY 07/13/18 [History] Mind Grajeda 2 tsp PO DAILY 07/13/18 [History] SUMAtriptan SUCCINATE [Imitrex] 50 mg PO TID PRN 07/13/18 [History] Super C 1 tab PO HS 07/13/18 [History] Wheat Germ Oil 1 tab PO BID 07/13/18 [History] Ferrous Sulfate [Iron (65 MG Elemental)] 325 mg PO DAILY 12/28/19 [History] [facility] 1 tab PO DAILY 12/28/19 [History] Acetaminophen Tab [Tylenol Tab] 1,000 mg PO Q6HR PRN #30 tablet 12/29/19 [Rx] HYDROcodone/APAP 5-325MG [[place] 5-325] 1 tab PO Q6HR PRN 3 Days #10 tab 12/29/19 [Rx] Ibuprofen [Motrin] 600 mg PO Q8HR PRN #30 tab 12/29/19 [Rx] Follow up Appointment(s)/Referral(s): Gayla Mccray MD [STAFF PHYSICIAN] - 01/02/20 Patient Instructions/Handouts: *[facility]gery [facility] - (Anesthesia) Discharge Instr uctions Outpatient Surgery, Laparoscopic Herniorrhaphy (DC), Abdominal Binder (DC), Ventral Hernia Repair (DC), Inguinal Hernia Repair (DC) Activity/Diet/Wound Care/Special Instructions: DO NOT REMOVE ABDOMINAL DRESSING! Wear abdominal binder at all times No lifting over 4 pounds in 4 weeks until Sep 25. November shower. No bath tub soaks for two weeks until Sep. Diet as tolerated. No driving while on narcotics. Use Tylenol and ibuprofen scheduled for the next 24-48 hours for best pain relief. Use ice along incisions for the today to prevent swelling. Discharge Disposition: HOME SELF-CARE
[2019-12-29 13:03] VITALS: RESP 16
[2019-12-29] MEDS ORDERED: HYDROcodone/APAP 5-325MG 1 EACH TAB PO ONE (13:32)
[2019-12-29] MEDS ORDERED: ONDANSETRON 4 MG/2 ML VIAL IVP ONE (15:30)
[2019-12-29 16:58] VITALS: BP 146/84; PULSE 80
== END 2019-12-29 17:14 | disposition home or self-care (01) ==
LOC: OR 07:45
PROVIDERS: ATTEND Surgery Plastic and Reconstructive Surgery
DX: K40.91 Unilateral inguinal hernia, without obstruction or gangrene, recurrent (principal); K43.2 Incisional hernia without obstruction or gangrene; D49.89 Neoplasm of unspecified behavior of other specified sites; N83.202 Unspecified ovarian cyst, left side; G47.33 Obstructive sleep apnea (adult) (pediatric); F17.200 Nicotine dependence, unspecified, uncomplicated; Z91.041 Radiographic dye allergy status; Z98.890 Other specified postprocedural states; M19.90 Unspecified osteoarthritis, unspecified site; Z99.89 Dependence on other enabling machines and devices; Z98.51 Tubal ligation status; Z79.899 Other long term (current) drug therapy; Z91.89 Other specified personal risk factors, not elsewhere classified; Z80.1 Family history of malignant neoplasm of trachea, bronchus and lung
CPT/HCPCS: 11406; 49651; 49656; S2900; 64488; 80053; 81025; 85027; 88302

== ENCOUNTER → 2020-01-30 | Outpatient (CLI) | payer BC ==
--- NOTE | 2020-01-30 15:45 | US ---
EXAMINATION TYPE: US pelvic complete DATE OF EXAM: 01/30/2020 COMPARISON: US 2017 CLINICAL HISTORY: N83.209 OVARIAN CYST. Intermittent right pelvic pain, 3, para 1, 1 , miscarriage 1, history of uterine ablation and tubal ligation TECHNIQUE: . Transabdominal sonographic images of the pelvis were acquired. Date of LMP: 3 years ago, no period since uterine ablation EXAM MEASUREMENTS: Uterus: 10.0 x 4.3 x 5.2 cm Endometrial Stripe: 0.6 cm Right Ovary: 3.6 x 2.1 x 2.9 cm Left Ovary: 3.2 x 2.4 x 2.7 cm 1. Uterus: borderline enlarged, anteverted, heterogeneous, 1.4 x 1.2 x 1.5cm hypoechoic lesion 2. Endometrium: appears wnl 3. Right Ovary: 2.1 x 1.7 x 1.9cm cystic area 4. Left Ovary: 1.6 x 1.8 x 1.6cm cystic area 5. Bilateral Adnexa: wnl 6. Posterior cul-de-sac: wnl IMPRESSION: 1. Bilateral ovarian cysts. 2. 1.4 x 1.2 x 1.5 cm hypoechoic uterine lesion may be a fibroid along the posterior fundus.
== END | disposition home or self-care (01) ==
LOC: RADUSWWP 13:34
PROVIDERS: ATTEND Family Medicine
DX: N83.201 Unspecified ovarian cyst, right side (principal); N83.202 Unspecified ovarian cyst, left side
CPT/HCPCS: 76856

== ENCOUNTER → 2020-02-12 | Outpatient (CLI) | payer BC ==
--- NOTE | 2020-02-14 07:52 | MM ---
Reason for exam: screening (asymptomatic). Last mammogram was performed 1 year and 1 month ago. History: Family history of breast cancer in maternal aunt and breast cancer in paternal aunt. Benign US biopsy breast VAD RT of the right breast, January 08, 2017. Took hormonal contraceptives for 2 years. Physical Findings: A clinical breast exam by your physician is recommended on an annual basis and results should be correlated with mammographic findings. MG 3D Screening Mammo W/Cad Bilateral CC and MLO view(s) were taken. Prior study comparison: January 11, 2019, bilateral MG screening mammo w CAD. October 05, 2017, right breast MG diagnostic mammo RT w CAD. The breast tissue is heterogeneously dense. This may lower the sensitivity of mammography. Asymmetric breast tissue left upper outer quadrant. This finding is changed when compared with previous exams. ASSESSMENT: Incomplete: need additional imaging evaluation, BI-RAD 0 RECOMMENDATION: Ultrasound of the left breast. [facility] will attempt to contact patient to return for ultrasound.
== END | disposition home or self-care (01) ==
LOC: RADMAMWWP 07:42
PROVIDERS: ATTEND Family Medicine
DX: Z12.39 Encounter for other screening for malignant neoplasm of breast (principal)
CPT/HCPCS: 77063; 77067

== ENCOUNTER → 2020-02-21 | Outpatient (CLI) | payer BC ==
--- NOTE | 2020-02-22 17:38 | USB ---
Reason for exam: additional evaluation requested from abnormal screening. History: Family history of breast cancer in maternal aunt and breast cancer in paternal aunt. Benign US biopsy breast VAD RT of the right breast, January 08, 2017. Took hormonal contraceptives for 2 years. Physical Findings: Nurse did not find any significant physical abnormalities on exam. US Breast Workup Limited LT Left limited breast ultrasound including focal area of concern, retroareolar and axilla demonstrates a 8 x 6 x 10mm cystic cluster at 2 o'clock and a 10 x 3 x 7mm cystic lesion at 3 o'clock. These results were verbally communicated with the patient and result sheet given to the patient on 02/21/20. ASSESSMENT: Probably benign, BI-RAD 3 RECOMMENDATION: Follow-up diagnostic mammogram and ultrasound of the left breast in 6 months.
== END | disposition home or self-care (01) ==
LOC: RADUSWWP 13:44
PROVIDERS: ATTEND Family Medicine
DX: R92.8 Other abnormal and inconclusive findings on diagnostic imaging of breast (principal)

== ENCOUNTER → 2020-05-07 | Outpatient (CLI) | payer BC ==
--- NOTE | 2020-05-08 07:31 | CT ---
EXAMINATION TYPE: CT abdomen pelvis wo con DATE OF EXAM: 05/07/2020 COMPARISON: 02/08/2015 HISTORY: umbilical pain CT DLP: 498.5 mGycm Examination of the solid and hollow viscera is limited given the lack of contrast. FINDINGS: LUNG BASES: No evidence for nodule. No evidence for infiltrate. LIVER/GB: The gallbladder is unremarkable. Hypoattenuating lesion adjacent to the falciform ligament measures 1.5 cm and could reflect a cyst. PANCREAS: No pancreatic mass identified. No inflammatory process seen. SPLEEN: No evidence for splenomegaly. No intrasplenic lesions seen. ADRENALS: No adrenal nodules identified. No evidence for thickening. KIDNEYS: No evidence for renal mass. Nonobstructing calculus mid pole left kidney measures 2 mm. No h ydronephrosis. BOWEL: Appendix has a normal appearance. No evidence of bowel obstruction. No inflammatory process. Lymph nodes: No evidence for adenopathy greater than 1 cm. Abdominal aorta: Atheromatous changes seen. No evidence for aneurysm. Genital organs: There is masslike fullness of the uterine cervix poorly characterized given the lack of contrast. Pelvic ultrasound is advised for further characterization to exclude cervical mass. No d efinite ovarian or adnexal mass appreciated with certainty. Other: No significant abnormality. IMPRESSION: 1. Masslike fullness of the uterine cervix. Pelvic ultrasound is recommended. 2. Nonobstructing calculus left kidney. 3. Probable hepatic cyst which can be confirmed with ultrasound.
== END | disposition home or self-care (01) ==
LOC: RADCTMAIN 18:15
PROVIDERS: ATTEND Surgery Plastic and Reconstructive Surgery
DX: N20.0 Calculus of kidney (principal)
CPT/HCPCS: 74176

== ENCOUNTER → 2020-09-19 | Outpatient (CLI) | payer BC ==
--- NOTE | 2020-09-19 11:36 | MM ---
Reason for exam: follow-up at short interval from prior study. Last mammogram was performed 7 months ago. History: Family history of breast cancer in maternal aunt and breast cancer in paternal aunt. Benign US biopsy breast VAD RT of the right breast, January 08, 2017. Took hormonal contraceptives for 2 years. Physical Findings: Nurse did not find any significant physical abnormalities on exam. MG 3D Diag Mammo W/Cad LT CC, MLO, and XCCL view(s) were taken of the left breast. Prior study comparison: February 12, 2020, bilateral MG 3d screening mammo w/cad. January 11, 2019, bilateral MG screening mammo w CAD. The breast tissue is extremely dense which could obscure a lesion on mammography. Nodule 8cm from nipple upper outer left breast. These results were verbally communicated with the patient and result sheet given to the patient on 09/19/20. ASSESSMENT: Incomplete: need additional imaging evaluation, BI-RAD 0 RECOMMENDATION: Ultrasound of the left breast.
--- NOTE | 2020-09-19 11:47 | USB ---
Reason for exam: additional evaluation requested from abnormal screening. History: Family history of breast cancer in maternal aunt and breast cancer in paternal aunt. Benign US biopsy breast VAD RT of the right breast, January 08, 2017. Took hormonal contraceptives for 2 years. US Breast Limited LT Left limited breast ultrasound including focal area of concern, retroareolar and axilla demonstrates a 1.1 x 1.2 x 1.2cm oval, cystic cluster at 2 o'clock, a 0.8 x 0.5 x 0.2cm oval, cystic lesion at 3 o'clock and duct ectasia at the posterior nipple. These results were verbally communicated with the patient and result sheet given to the patient on 09/19/20. ASSESSMENT: Benign, BI-RAD 2 RECOMMENDATION: Return to routine screening mammogram schedule for both breasts.
== END | disposition home or self-care (01) ==
LOC: RADMAMWWP 09:31
PROVIDERS: ATTEND Family Medicine
DX: N60.19 Diffuse cystic mastopathy of unspecified breast (principal); R92.8 Other abnormal and inconclusive findings on diagnostic imaging of breast
CPT/HCPCS: 77061; 77065

== ENCOUNTER → 2021-10-21 | Outpatient (CLI) | payer BC ==
--- NOTE | 2021-10-22 10:19 | MM ---
Reason for exam: screening (asymptomatic). Last mammogram was performed 1 year and 1 month ago. History: Family history of breast cancer in maternal aunt and breast cancer in paternal aunt. Benign US biopsy breast VAD RT of the right breast, January 08, 2017. Took hormonal contraceptives for 2 years. Physical Findings: A clinical breast exam by your physician is recommended on an annual basis and results should be correlated with mammographic findings. MG 3D Screening Mammo W/Cad Bilateral CC and MLO view(s) were taken. Prior study comparison: February 12, 2020, bilateral MG 3d screening mammo w/cad. January 01, 2017, bilateral MG 3d diag mammo w/cad JANET. The breast tissue is extremely dense which could obscure a lesion on mammography. Previous mammotome biopsy in the right breast. There is no discrete abnormality. ASSESSMENT: Benign, BI-RAD 2 RECOMMENDATION: Routine screening mammogram of both breasts in 1 year.
== END | disposition home or self-care (01) ==
LOC: RADMAMWWP 14:48
PROVIDERS: ATTEND Obstetrics & Gynecology
DX: Z12.31 Encounter for screening mammogram for malignant neoplasm of breast (principal); Z80.3 Family history of malignant neoplasm of breast
CPT/HCPCS: 77063; 77067

== ENCOUNTER → 2023-02-16 | Outpatient (CLI) | payer BC ==
--- NOTE | 2023-02-17 20:54 | MM ---
Reason for Exam: Screening (asymptomatic). Last mammogram was performed 1 year(s) and 4 month(s) ago. Patient History: Menarche at age 16. First Full-Term at age 23. Patient used Hormonal Contraceptives for 2 years. 01/08/2017, Benign Core Biopsy on the right side. Paternal aunt had breast cancer. Maternal aunt had breast cancer. Risk Values: Samira 5 year model risk: 1.0%. NCI Lifetime model risk: 8.5%. Prior Study Comparison: 02/12/2020 Bilateral Screening Mammogram, LOCATED WITHIN [facility]. 09/19/2020 Left Diagnostic Mammogram, LOCATED WITHIN [facility]. 10/21/2021 Bilateral Screening Mammogram, LOCATED WITHIN [facility]. Tissue Density: The breast tissue is heterogeneously dense. This may lower the sensitivity of mammography. Findings: Analyzed By CAD. Chronic bilateral breast nodularity. Microclip far posteriorly and laterally on the right at the site of a large global asymmetry. Asymmetric density medial left CC view remains unchanged as well. There is no suspicious group of microcalcifications or new suspicious mass in either breast. Overall Assessment: Benign, BI-RAD 2 Management: Screening Mammogram of both breasts in 1 year. . Patient should continue monthly self-breast exams. A clinical breast exam by your physician is recommended on an annual basis. This exam should not preclude additional follow-up of suspicious palpable abnormalities. Note on Samira scores and lifetime risk: 1. A Samira score greater than 3% is considered moderate risk. If this is the case, consider specialist referral to assess eligibility for a risk reducing agent. 2. If overall lifetime risk for the development of breast cancer is 20% or higher, the patient may qualify for future screening with alternating mammogram and breast MRI. Electronically signed and approved by: Ronaldo Hall M.D. Radiologist
== END | disposition home or self-care (01) ==
LOC: RADMAMWWP 16:02
PROVIDERS: ATTEND Obstetrics & Gynecology
DX: Z12.31 Encounter for screening mammogram for malignant neoplasm of breast (principal); Z80.3 Family history of malignant neoplasm of breast
CPT/HCPCS: 77063; 77067

== ENCOUNTER → 2023-10-22 | Outpatient (CLI) | payer BC ==
--- NOTE | 2023-10-22 13:05 | XR ---
EXAM TYPE: LUMBAR SPINE X RAY SERIES COMPARISON: 08/30/2013 HISTORY: Pain TECHNIQUE: 4 views are submitted. FINDINGS: Alignment is anatomic. The pedicles are intact. The transverse processes are intact. There is mild generalized demineralization. Mild degenerative disc disease L5-S1 with facet arthropathy. Suspect f oraminal encroachment. IMPRESSION: 1. Mild degenerative disc disease L5-S1 with facet arthropathy. Suspect foraminal encroachment.
== END | disposition home or self-care (01) ==
LOC: RADXRMAIN 12:28
PROVIDERS: ATTEND Family Medicine
DX: M51.37 Other intervertebral disc degeneration, lumbosacral region (principal); M47.817 Spondylosis without myelopathy or radiculopathy, lumbosacral region
CPT/HCPCS: 72100

== ENCOUNTER → 2023-12-13 | Outpatient (CLI) | payer BC ==
--- NOTE | 2023-12-13 13:02 | US ---
EXAMINATION TYPE: US kidneys/renal and bladder DATE OF EXAM: 12/13/2023 COMPARISON: CT 2019 CLINICAL INDICATION: Female, 53 years old with history of R35.0 FREQ OF MICTURITION; EXAM MEASUREMENTS: Right Kidney: 10.9 x 4.1 x 3.9 cm Left Kidney: 9.9 x 4.2 x 4.1 cm Post Void Residual Volume: 37 mL Right Kidney: appears wnl Left Kidney: Small stones noted ; largest measuring 0.6cm; prominent pelvis Bladder: Anechoic Bilateral Jets seen: Yes Normal Post Void Residual: Yes IMPRESSION: Nonobstructing left renal stones
== END | disposition home or self-care (01) ==
LOC: RADUSWWP 12:23
PROVIDERS: ATTEND Family Medicine
DX: N20.0 Calculus of kidney (principal); R35.0 Frequency of micturition
CPT/HCPCS: 76770

== ENCOUNTER → 2024-02-14 | Outpatient (CLI) | payer BC ==
[2024-02-14 13:17] VITALS: BP 124/85; PULSE 72; RESP 16; TEMP 98.3
--- NOTE | 2024-02-14 14:19 | P.SLEEP ---
History of Present Illness DATE: 02/14/2024 CONSULTATION/NEW PATIENT EVALUATION HISTORY OF PRESENT ILLNESS/SLEEP-WAKE EVALUATION: 53-year-old lady had been e valuated in the sleep center for obstructive sleep apnea hypopnea syndrome. Patient has history of obstructive sleep apnea hypopnea syndrome for 10 years. For that period of time patient was on treatment with CPAP vendor option of treatment for several years. For last several years patient continued to use his CPAP equipment every night for the whole night. SLEEP SCHEDULE: Usually sleep schedule from 10 PM to 5 AM on weekdays and from 11 PM to 7 AM on weekend. FALLING ASLEEP: Sometimes patient has difficulties with falling asleep. DURING SLEEP: Patient believes that she snores while using CPAP and has episodes of choking. She wakes up from sleep 4 times with 2 episodes of nocturia. No history of hypnogogical hallucinations, sleep paralysis, or cataplexy. DURING THE DAY/WAKE STATE: In the morning patient wake up tired, has difficulties to pay attention, has problems with memory. [place] sleepiness scale is 7, which is normal. Patient may take 2 naps per week. PAST MEDICAL HISTORY: Anxiety. PAST SURGICAL HISTORY: Neck surgery, left shoulder surgery. MEDICATIONS: Please see below. SOCIAL HISTORY: Please see below. FAMILY HISTORY: Stroke, cancer, diabetes, during the sleep. REVIEW OF SYSTEMS: Multiple awakenings from sleep well treatment with CPAP. No fevers. No double vision. No recent chest pain. No shortness of breath. No abdominal pain. No bleeding episodes. No blood in urine. No seizure episodes. PHYSICAL EXAMINATION: GENERAL: A pleasant patient without any distress. VITAL SIGNS: Please see below, weight is 171 pounds, BMI 28.8. HEENT: PERRLA, EOMI. Evaluation of oropharynx showed tongue protrudes midline, low position of soft palate Mallampati 4. NECK: Supple. No JVD. Thyroid is not palpable. 13 inches in circumference. LUNGS: Clear to percussion and to auscultation. Good air exchange. No wheezing or rhonchi. HEART: S1, S2 regular. No murmurs, gallops or rubs. ABDOMEN: Soft and nontender. Bowel sounds are present. No organomegaly appreciated. EXTREMITIES: No clubbing or cyanosis. MAINTENANCE MILLWRIGHT: Awake, alert, and oriented x3. Cranial nerves 2 to 7 intact. There is no fasciculation or atrophy noted. No focal deficits observed. I checked CPAP unit. CPAP pressure is 5 cm of water usage is about 50% of the time, average 6.2 hours per night. Leak is 22 L/min which is in acceptable range. Apnea hypopnea index is 1.3 which is normal. I changed pressure in CPAP unit to the AutoPAP range 4-7 cm of water. ASSESSMENT: 1. Obstructive sleep apnea hypopnea syndrome documented by sleep study in our institution 10 years ago at that time apnea hypopnea index 33.8, which is in severe range. Patient is using her CPAP equipment. Extremely low position of soft palate Mallampati 4, awakenings from sleep while using CPAP. 2. History of anxiety. 3. Status post neck surgery in the past in 2010. 4. Status post left shoulder surgery in 2011. 5 status post tubal ligation. PLAN: 1. Patient will continue to use CPAP equipment every night for the whole night, patient promised to follow recommendations. 2. Follow-up visit in 3 months. 3. Preferable position during sleep on the side. 4. No driving if patient feels any sleepiness. Patient is aware of civil and criminal liability for unsafe driving. 5. Sleep hygiene with regular sleep time for at least 7.5-8 hours. 6. Watching weight. Thank you very much for referring this patient for consultation. Sincerely, Brent Marlow MD, PhD, FAASM. Diplomat of [place] [employer], Sleep Medicine Board by [employer] S[employer] [facility] Supervisor of [facility] [place] Chasity Martell DO Past Medical History Past Medical History: Osteoarthritis (OA), Sleep Apnea/CPAP/BIPAP Additional Past Medical History / Comment(s): CPAP use. History of Any Multi-Drug Resistant Organisms: None Reported Past Surgical History: Hernia Repair, Orthopedic Surgery, Tubal Ligation, Uterine Ablation Additional Past Surgical History / Comment(s): Umbilical hernia as an , neck surgery 2010, left shoulder minor rotator cuff surgery. LEFT GROIN CYST ASPIRATION. Past Anesthesia/Blood Transfusion Reactions: Postoperative Nausea & Vomiting (PONV) Past Psychological History: No Psychological Hx Reported Smoking Status: Former smoker, Vaper Past Alcohol Use History: Occasional Additional Past Alcohol Use History / Comment(s): Quit smoking 3 yrs ago, smoked on and off for 15 yrs. Still has an occasional cigarette when she drinks alcohol. Past Drug Use History: None Reported - Past Family History Father Family Medical History: Diabetes Mellitus, GERD/Reflux Mother Family Medical History: Cancer, CVA/TIA, Hypertension, Sleep Apnea/CPAP/BIPAP Additional Family Medical History / Comment(s): Lung cancer. during sleep, Head aches, sinus headaches Medications and Allergies Home Medications Medication Instructions Recorded Confirmed Type Arginex 1 tab PO BID 07/13/18 12/28/19 History D-Mannose 2 tab PO QAM 07/13/18 12/28/19 History L.acidoph,Paracasei, B.lactis 1 each PO DAILY 07/13/18 12/28/19 History [Probiotic] Mind Grajeda 2 tsp PO DAILY 07/13/18 12/28/19 History SUMAtriptan succinate [Imitrex] 50 mg PO TID PRN 07/13/18 12/28/19 History Super C 1 tab PO HS 07/13/18 12/28/19 History Wheat Germ Oil 1 tab PO BID 07/13/18 12/28/19 History Ferrous Sulfate [Iron (65 MG 325 mg PO DAILY 12/28/19 12/28/19 History Elemental)] [facility] 1 tab PO DAILY 12/28/19 12/28/19 History HYDROcodone/APAP 5-325MG [[place] 1 tab PO Q6HR PRN 3 Days #10 tab 12/29/19 Rx 5-325] Ibuprofen [Motrin] 600 mg PO Q8HR PRN #30 tab 12/29/19 Rx Cyclobenzaprine [Flexeril] 10 mg PO TID #30 tab 01/03/20 Rx Acetaminophen Tab [Tylenol Tab] 1,000 mg PO Q6HR PRN 02/14/24 History Cholecalciferol (Vitd3)/Vit K2 25 mcg PO DAILY 02/14/24 02/14/24 History [Vit D3-Vit K2 125-100 Mcg Sfgl] Cyanocobalamin [Vitamin B-12] 500 mcg PO DAILY 02/14/24 02/14/24 History Vit C/E/Cuperic/Zinc/Lutein 02/14/24 History [Preservision Lutein Softgel] Vit C/Zinc Gluconat/Elderberry See Rx Instructions .ROUTE .COMPLEX 02/14/24 02/14/24 History [Sambucus Elderberry Zinc Lozng] metFORMIN HCL 500 mg PO DAILY 02/14/24 02/14/24 History Allergies Allergy/AdvReac Type Severity Reaction Status Date / Time Iodinated Contrast Media AdvReac Rash/Hives Verified 12/29/19 07:58 [Iodinated Contrast Media - IV Dye] Physical Exam Vitals: Vital Signs Temp Pulse Resp BP Pulse Ox 02/14/24 13:15 98.3 F 72 16 124/85 100 Intake and Output 02/13/24 02/14/24 02/14/24 22:59 06:59 14:59 Other: Weight 77.564 kg Sleep Note - Sleep Data ESS Total: 7 - Sleep Note Sleep Note: Temperature: 98.3 F Pulse Rate: 72 Respiratory Rate: 16 Blood Pressure: 124/85 SpO2: 100 Height: 5 ft 4.5 in Weight: 77.564 kg BMI: Neck Circumference: 13
== END ==
LOC: 3 N SLEEP 13:03
PROVIDERS: ATTEND Internal Medicine
DX: G47.33 Obstructive sleep apnea (adult) (pediatric) (principal); F41.9 Anxiety disorder, unspecified; Z98.890 Other specified postprocedural states; Z87.891 Personal history of nicotine dependence; Z91.041 Radiographic dye allergy status; Z99.89 Dependence on other enabling machines and devices; Z98.51 Tubal ligation status
CPT/HCPCS: 99211

== ENCOUNTER → 2024-05-03 | Outpatient (CLI) | payer BC ==
[2024-05-03 16:01] VITALS: BP 133/80; PULSE 71; RESP 18; TEMP 98.6
--- NOTE | 2024-05-03 16:36 | P.PROGSL ---
Subjective DATE: 05/03/2024 FOLLOW UP VISIT. Patient with obstructive sleep apnea hypopnea syndrome return to sleep center for follow-up visit. Information from previous visit have been reviewed. Patient is using PAP equipment every night for the whole night, getting PAP supplies in time. The patient does not have significant problems with the mask, PAP unit and humidification. [place] sleepiness scale is 8, which is normal. I checked information from PAP unit. PAP unit pressure 4-7, average 7 cm H2O. Usage is 80% for more then 4 hours, average 6.3 hours per night. Leak is 28 l/m, which is in acceptable range. Apnea Hypopnea Index is 0.8, which is normal. MEDICATIONS have been reviewed, please see below. During physical exam: GENERAL: A pleasant patient without any distress. VITAL SIGNS: Please see below, weight is 164.0 lbs. HEENT: PERRLA, EOMI.low position of soft palate, Mallapati 4 . NECK: Supple. No JVD. LUNGS: Clear to percussion and to auscultation. Good air exchange. No wheezing or rhonchi. HEART: S1, S2 regular. ABDOMEN: Soft and nontender.[] EXTREMITIES: No clubbing or cyanosis. LABORER HOISTING: Awake, alert, and oriented x3. No focal deficit. Impressions: 1. Obstructive sleep apnea-hypopnea syndrome. Patient demonstrated great compliance with treatment, benefiting from treatment. Patient feels better with the adjustments of pressure which I did during previous visit. 2. History of anxiety. 3. Status post neck surgery in 2010. 4. Status post shoulder surgery in 2011. 5. Status post tubal ligation. Plan: 1. Continue using PAP equipment every night for the whole night. 2. Sleep hygiene with regular time in bed for at least 7.5-8 hours 3. PAP unit should stay lower then position of the head. 4. Advised patient to remove all remaining water from humidifier canister daily and make it dry after each usage. Refill canister with fresh distilled water before each usage. 5. Watching weight. 6. Precautions related to driving. No driving if feel any sleepiness. 7. I will maintain prescription for PAP supplies including mask, tube, filters. 8. Follow up visit in 8 months or earlier if patient has any problems. Thank you very much for allowing me to participate in the management of your patient. Brent Marlow MD, PhD, FAASM. Diplomat of [place] [employer], Sleep Medicine Board by [place] [employer] Supervisor [facility] [place] Objective - Vital Signs Vital Signs: Vital Signs Temp 98.6 F 05/03/24 15:59 Pulse 71 05/03/24 15:59 Resp 18 05/03/24 15:59 BP 133/80 05/03/24 15:59 Pulse Ox 100 05/03/24 15:59 FiO2 Intake & Output 05/02/24 05/03/24 05/03/24 18:59 06:59 18:59 Weight 76.657 kg Home Medications: Home Medications Medication Instructions Recorded Confirmed Type Arginex 1 tab PO BID 07/13/18 12/28/19 History D-Mannose 2 tab PO QAM 07/13/18 12/28/19 History L.acidoph,Paracasei, B.lactis 1 each PO DAILY 07/13/18 12/28/19 History [Probiotic] Mind Grajeda 2 tsp PO DAILY 07/13/18 12/28/19 History SUMAtriptan succinate [Imitrex] 50 mg PO TID PRN 07/13/18 12/28/19 History Super C 1 tab PO HS 07/13/18 12/28/19 History Wheat Germ Oil 1 tab PO BID 07/13/18 12/28/19 History Ferrous Sulfate [Iron (65 MG 325 mg PO DAILY 12/28/19 12/28/19 History Elemental)] [facility] 1 tab PO DAILY 12/28/19 12/28/19 History HYDROcodone/APAP 5-325MG [[place] 1 tab PO Q6HR PRN 3 Days #10 tab 12/29/19 Rx 5-325] Ibuprofen [Motrin] 600 mg PO Q8HR PRN #30 tab 12/29/19 Rx Cyclobenzaprine [Flexeril] 10 mg PO TID #30 tab 01/03/20 Rx Acetaminophen Tab [Tylenol Tab] 1,000 mg PO Q6HR PRN 02/14/24 History Cholecalciferol (Vitd3)/Vit K2 25 mcg PO DAILY 02/14/24 02/14/24 History [Vit D3-Vit K2 125-100 Mcg Sfgl] Cyanocobalamin [Vitamin B-12] 500 mcg PO DAILY 02/14/24 02/14/24 History Vit C/E/Cuperic/Zinc/Lutein 02/14/24 History [Preservision Lutein Softgel] Vit C/Zinc Gluconat/Elderberry See Rx Instructions .ROUTE .COMPLEX 02/14/24 02/14/24 History [Sambucus Elderberry Zinc Lozng] metFORMIN HCL 500 mg PO DAILY 02/14/24 02/14/24 History
== END | disposition home or self-care (01) ==
LOC: 3 N SLEEP 15:38
PROVIDERS: ATTEND Internal Medicine
DX: G47.33 Obstructive sleep apnea (adult) (pediatric) (principal)
CPT/HCPCS: 99212